=== PATIENT | female | born 1980 | race Caucasian/White ===

== ENCOUNTER 2016-04-01 20:24 | Emergency (ER) | payer OTHER ==
[~2016-04-01] VITALS: Ht 154.9 cm; Wt 50.0 kg
[~2016-04-01 20:24] MED LIST: ADVIL,NUPRIN,M200 MG PO; BACTRIM,SEPT1 TABLET PO; BUSPAR15 MG PO; DESYREL100 MG PO; ENDOCET 5-3251 EACH PO; FERROCITE324 MG PO; GABAPENTIN300 MG PO; LEVAQUIN750 MG PO; LOVENOX40 MG/0.4 SC; MOTRIN800 MG PO; NAPROSYN500 MG PO; NEURONTIN300 MG PO; NORCO 5/3251 TABLET PO; PERCOCET 5/31 TABLET PO; PRENATAL TABLE1 EAC3 PO; PROTONIX40 MG PO; TYLENOL WITH C1 EACH PO; XARELTO1 EACH PO; ZOLOFT25 MG PO
[2016-04-01 23:17] VITALS: BP 113/70
== END 2016-04-01 23:24 | disposition home or self-care (01) ==
LOC: EME 20:24
PROVIDERS: Physician Assistant
DX: M79.671 Pain in right foot (principal); M79.89 Other specified soft tissue disorders; Z86.718 Personal history of other venous thrombosis and embolism; Z79.01 Long term (current) use of anticoagulants
CPT/HCPCS: 73610; 85379; 99281; 99284

== ENCOUNTER 2016-04-11 16:42 | Emergency (ER) | payer OTHER ==
[~2016-04-11] VITALS: Ht 154.9 cm; Wt 47.3 kg
[2016-04-11] MEDS ORDERED: LIBRIUM25 MG PO (19:10)
[2016-04-11 20:29] LABS: BASOPHIL COUNT 0.1 K/uL (0-0.1); EOSINOPHIL (%) 2.7 % (0-5); EOSINOPHIL COUNT 0.1 K/uL (0-0.3); HEMATOCRIT 39.4 % (36.0-46.0); IMMATURE GRANULOCYTE (%) 0.2 % (0.0-0.7); IMMATURE GRANULOCYTE COUNT 0.1 K/uL; LYMPHOCYTE COUNT 2.2 K/uL (1.0-2.8); MCH 33.9 PG (29.0-34.0); MCHC 33.2 G/DL (30.0-36.0); MCV 101.8 FL (83-99); MEAN PLAT.VOLUME 9.4 uM^3 (9.5-12.4); MONOCYTE COUNT 0.4 K/uL (0-0.8); NEUTROPHIL (%) 46.3 % (45-76); NEUTROPHIL COUNT 2.4 K/uL (1.8-6.4); PLATELET COUNT 258 K/uL (156-360); RBC DIS.WIDTH-CV 13.3 % (11.8-14.6); RBC DIS.WIDTH-SD 48.7 % (39-53); RED BLOOD COUNT 3.87 M/uL (3.80-5.20); WHITE BLOOD COUNT 5.3 K/uL (4.1-10.2)
[2016-04-11 20:34] LABS: CHLORIDE 108 mEq/L (99-109); SODIUM 146 mEq/L (136-147)
[2016-04-11 20:36] LABS: GLUCOSE 98 mg/dL (70-99)
[2016-04-11 20:37] LABS: ANION GAP 11 MEQ/L (2-14)
[2016-04-11 20:38] LABS: TOTAL BILIRUBIN 0.2 mg/dL (0.0-1.0)
[2016-04-11 20:39] LABS: SERUM ETHYL ALCOHOL 318 mg/dL
[2016-04-11 20:40] LABS: ALKALINE PHOSPHATASE 60 IU/L (3-129); GFR ESTIMATE (CALCULATED) > 59 mL/min/
[2016-04-11 20:41] LABS: UREA NITROGEN (BUN) 3 mg/dL (9-23)
[2016-04-12] MEDS ORDERED: LIBRIUM25 MG PO (06:36)
[2016-04-12 07:10] VITALS: BP 120/76
== END 2016-04-12 07:24 | disposition home or self-care (01) ==
LOC: EME 16:42
PROVIDERS: Emergency Medicine
DX: S06.0X0A Concussion without loss of consciousness, initial encounter (principal); F10.129 Alcohol abuse with intoxication, unspecified; Y90.8 Blood alcohol level of 240 mg/100 ml or more; S00.83XA Contusion of other part of head, initial encounter; Z91.81 History of falling; J45.909 Unspecified asthma, uncomplicated; K21.9 Gastro-esophageal reflux disease without esophagitis; Z87.442 Personal history of urinary calculi; Z86.718 Personal history of other venous thrombosis and embolism; F17.200 Nicotine dependence, unspecified, uncomplicated
CPT/HCPCS: 70450; 80053; 85025; 90839; 99281; 99284; G0480

== ENCOUNTER 2016-04-19 19:07 | Emergency (ER) | payer OTHER ==
[~2016-04-19] VITALS: Ht 154.9 cm; Wt 47.7 kg
[~2016-04-19 19:07] MED LIST changes: +LIBRIUM25 MG PO
[2016-04-19] MEDS ORDERED: XARELTO20 MG PO (19:18)
[2016-04-19 23:31] VITALS: BP 112/68
[2016-04-19] MEDS ORDERED: FIORICET 50-301 EACH PO ×2 (23:37→23:44)
[2016-04-19] MEDS ORDERED: MOTRIN800 MG PO (23:37)
== END 2016-04-19 23:47 | disposition home or self-care (01) ==
LOC: EME 19:07
PROC: 3E0234Z Introduction of Serum, Toxoid and Vaccine into Muscle, Percutaneous Approach (ICD-10-PCS; principal; 2016-04-19)
DX: S80.01XA Contusion of right knee, initial encounter (principal); S80.02XA Contusion of left knee, initial encounter; S96.911A Strain of unspecified muscle and tendon at ankle and foot level, right foot, initial encounter; R51 Headache; W18.09XA Striking against other object with subsequent fall, initial encounter; F10.129 Alcohol abuse with intoxication, unspecified; F17.200 Nicotine dependence, unspecified, uncomplicated
CPT/HCPCS: 70450; 73564; 73630; 99281; 99284

== ENCOUNTER 2016-11-30 21:26 | Inpatient (IN) | payer OTHER ==
[~2016-11-30] VITALS: Ht 154.9 cm; Wt 45.7 kg
[~2016-11-30 21:26] MED LIST changes: +FIORICET 50-301 EACH PO; +XARELTO20 MG PO
[2016-11-30 22:46] LABS: HEMATOCRIT 36.2 % (36.0-46.0); MCH 31.3 PG (29.0-34.0); MCHC 33.4 G/DL (30.0-36.0); MCV 93.8 FL (83-99); MEAN PLAT.VOLUME 8.9 uM^3 (9.5-12.4); PLATELET COUNT 210 K/uL (156-360); RBC DIS.WIDTH-CV 20.9 % (11.8-14.6); RBC DIS.WIDTH-SD 71.2 % (39-53); RED BLOOD COUNT 3.86 M/uL (3.80-5.20); WHITE BLOOD COUNT 6.7 K/uL (4.1-10.2)
[2016-11-30 22:51] LABS: PROTHROMBIN TIME 10.8 SEC (10.2-12.9)
[2016-11-30 22:54] LABS: PTT 29.6 SEC (25-37)
[2016-11-30 23:04] LABS: CHLORIDE 105 mEq/L (99-109); POTASSIUM 4.3 mEq/L (3.7-5.4); SODIUM 142 mEq/L (136-147)
[2016-11-30 23:05] LABS: GLUCOSE 82 mg/dL (70-99)
[2016-11-30 23:07] LABS: ANION GAP 12 MEQ/L (2-14)
[2016-11-30 23:08] LABS: TROP-I INTERPRETATION NEGATIVE; TROPONIN-I < 0.01 ng/mL (0.0-0.30)
[2016-11-30 23:09] LABS: GFR ESTIMATE (CALCULATED) > 59 mL/min/
[2016-11-30 23:10] LABS: UREA NITROGEN (BUN) 10 mg/dL (9-23)
[2016-11-30 23:20] LABS: QUANTITATIVE HCG < 4.0 MIU/ML
[2016-12-01 04:23] LABS: MAGNESIUM 1.7 mg/dL (1.3-2.7)
[2016-12-01 04:27] LABS: TOTAL BILIRUBIN 0.3 mg/dL (0.0-1.0)
[2016-12-01 04:28] LABS: ALKALINE PHOSPHATASE 56 IU/L (3-129)
[2016-12-01 04:30] LABS: DIRECT BILIRUBIN 0.2 mg/dL (0.0-0.3)
[2016-12-01 05:57] VITALS: BP 135/84
[2016-12-01 08:29] VITALS: BP 129/58
[2016-12-01 11:44] VITALS: BP 135/84
[2016-12-01 17:18] VITALS: BP 170/91
[2016-12-01 19:48] VITALS: BP 141/85
[2016-12-01 23:45] VITALS: BP 139/82
[2016-12-02 04:00] VITALS: BP 141/91
[2016-12-02 06:57] LABS: HEMATOCRIT 34.9 % (36.0-46.0); MCH 30.8 PG (29.0-34.0); MCHC 32.7 G/DL (30.0-36.0); MCV 94.3 FL (83-99); MEAN PLAT.VOLUME 9.4 uM^3 (9.5-12.4); PLATELET COUNT 165 K/uL (156-360); RBC DIS.WIDTH-CV 19.8 % (11.8-14.6); RBC DIS.WIDTH-SD 68.2 % (39-53); WHITE BLOOD COUNT 4.5 K/uL (4.1-10.2)
[2016-12-02 08:16] VITALS: BP 133/88
[2016-12-02 12:10] VITALS: BP 136/86
[2016-12-02 17:25] VITALS: BP 134/82
[2016-12-02 19:58] VITALS: BP 138/83
[2016-12-02 23:54] VITALS: BP 124/79
[2016-12-03 03:42] VITALS: BP 117/63
[2016-12-03 07:52] VITALS: BP 120/73
[2016-12-03] MEDS ORDERED: XARELTO1 EACH PO (10:28)
[2016-12-03 11:36] VITALS: BP 136/74
== END 2016-12-03 12:45 | disposition home or self-care (01) | DRG 176 ==
LOC: EME 21:26 → EDOF 12-01 02:40 → ENRESERV 12-01 02:41 → 3EAST 12-01 05:39
PROVIDERS: Hospitalist
DX: I26.99 Other pulmonary embolism without acute cor pulmonale (principal); I80.232 Phlebitis and thrombophlebitis of left tibial vein; I82.512 Chronic embolism and thrombosis of left femoral vein; I82.812 Embolism and thrombosis of superficial veins of left lower extremity; F32.9 Major depressive disorder, single episode, unspecified; F10.20 Alcohol dependence, uncomplicated; F17.200 Nicotine dependence, unspecified, uncomplicated; Z59.0 Homelessness; Z91.19 Patient's noncompliance with other medical treatment and regimen; Z87.442 Personal history of urinary calculi; Z86.718 Personal history of other venous thrombosis and embolism; Z86.711 Personal history of pulmonary embolism; Z82.5 Family history of asthma and other chronic lower respiratory diseases
CPT/HCPCS: 71020; 71275; 80048; 80076; 83735; 84484; 84702; 85027; 85379; 85610; 85730; 93005; 93971; 99281; 99284; J1170; J2270; J7040

== ENCOUNTER 2016-12-06 20:11 | Emergency (ER) | payer OTHER ==
[~2016-12-06] VITALS: Ht 154.9 cm; Wt 45.1 kg
[2016-12-06 21:09] LABS: HEMATOCRIT 41.7 % (36.0-46.0); MCH 31.1 PG (29.0-34.0); MCHC 32.6 G/DL (30.0-36.0); MCV 95.4 FL (83-99); MEAN PLAT.VOLUME 9.4 uM^3 (9.5-12.4); PLATELET COUNT 248 K/uL (156-360); RBC DIS.WIDTH-CV 19.8 % (11.8-14.6); RBC DIS.WIDTH-SD 69.5 % (39-53); RED BLOOD COUNT 4.37 M/uL (3.80-5.20); WHITE BLOOD COUNT 4.9 K/uL (4.1-10.2)
[2016-12-06 21:14] LABS: INTER. NORMALIZED RATIO 1.2; PROTHROMBIN TIME 13.2 SEC (10.2-12.9)
[2016-12-06 21:16] LABS: CHLORIDE 108 mEq/L (99-109); POTASSIUM 3.5 mEq/L (3.7-5.4); PTT 36.8 SEC (25-37); SODIUM 146 mEq/L (136-147)
[2016-12-06 21:18] LABS: GLUCOSE 81 mg/dL (70-99)
[2016-12-06 21:19] LABS: ANION GAP 15 MEQ/L (2-14)
[2016-12-06 21:22] LABS: GFR ESTIMATE (CALCULATED) > 59 mL/min/
[2016-12-06 21:23] LABS: UREA NITROGEN (BUN) 10 mg/dL (9-23)
[2016-12-06 21:28] LABS: TROP-I INTERPRETATION NEGATIVE; TROPONIN-I < 0.01 ng/mL (0.0-0.30)
[2016-12-07 00:27] VITALS: BP 144/99
== END 2016-12-07 00:24 | disposition home or self-care (01) ==
LOC: EME → EDBD 20:11 → EME 12-07 00:24
PROVIDERS: Emergency Medicine
DX: R07.9 Chest pain, unspecified (principal); R06.02 Shortness of breath; R42 Dizziness and giddiness; R53.1 Weakness; Z86.711 Personal history of pulmonary embolism; Z86.718 Personal history of other venous thrombosis and embolism; Z79.01 Long term (current) use of anticoagulants; F17.200 Nicotine dependence, unspecified, uncomplicated
CPT/HCPCS: 71020; 71275; 80048; 84484; 85027; 85610; 85730; 93005; 99281; 99285; J1885; J7030

== ENCOUNTER 2016-12-07 20:05 | Emergency (ER) | payer OTHER ==
[~2016-12-07] VITALS: Ht 152.4 cm; Wt 39.6 kg
[2016-12-07 21:07] LABS: HEMATOCRIT 35.1 % (36.0-46.0); MCH 31.6 PG (29.0-34.0); MCV 95.6 FL (83-99); MEAN PLAT.VOLUME 9.5 uM^3 (9.5-12.4); PLATELET COUNT 199 K/uL (156-360); RBC DIS.WIDTH-CV 19.6 % (11.8-14.6); RBC DIS.WIDTH-SD 68.5 % (39-53); RED BLOOD COUNT 3.67 M/uL (3.80-5.20); WHITE BLOOD COUNT 4.4 K/uL (4.1-10.2)
[2016-12-07 21:11] LABS: CHLORIDE 110 mEq/L (99-109); POTASSIUM 3.7 mEq/L (3.7-5.4); SODIUM 145 mEq/L (136-147)
[2016-12-07 21:12] LABS: GLUCOSE 88 mg/dL (70-99)
[2016-12-07 21:14] LABS: ANION GAP 11 MEQ/L (2-14)
[2016-12-07 21:16] LABS: GFR ESTIMATE (CALCULATED) > 59 mL/min/
[2016-12-07 21:17] LABS: UREA NITROGEN (BUN) 12 mg/dL (9-23)
[2016-12-07 21:37] LABS: INTER. NORMALIZED RATIO 1.2; PROTHROMBIN TIME 13.8 SEC (10.2-12.9)
[2016-12-07 21:39] LABS: PTT 33.9 SEC (25-37)
[2016-12-08 00:50] VITALS: BP 130/84
== END 2016-12-08 00:58 | disposition home or self-care (01) ==
LOC: EME 20:05
PROVIDERS: Emergency Medicine
DX: S00.01XA Abrasion of scalp, initial encounter (principal); W01.198A Fall on same level from slipping, tripping and stumbling with subsequent striking against other object, initial encounter; Y93.E1 Activity, personal bathing and showering; Z86.718 Personal history of other venous thrombosis and embolism; Z79.01 Long term (current) use of anticoagulants; Z87.442 Personal history of urinary calculi; F17.200 Nicotine dependence, unspecified, uncomplicated
CPT/HCPCS: 70450; 80048; 85027; 85610; 85730; 99281; 99285

== ENCOUNTER 2016-12-13 20:29 | Emergency (ER) | payer OTHER ==
[~2016-12-13] VITALS: Ht 154.9 cm; Wt 44.5 kg
[2016-12-13 21:56] LABS: CHLORIDE 106 mEq/L (99-109); POTASSIUM 3.4 mEq/L (3.7-5.4); SODIUM 142 mEq/L (136-147)
[2016-12-13 21:57] LABS: GLUCOSE 85 mg/dL (70-99)
[2016-12-13 21:59] LABS: ANION GAP 13 MEQ/L (2-14)
[2016-12-13 22:01] LABS: GFR ESTIMATE (CALCULATED) > 59 mL/min/
[2016-12-13 22:02] LABS: UREA NITROGEN (BUN) 7 mg/dL (9-23)
[2016-12-13 22:06] LABS: TROP-I INTERPRETATION NEGATIVE; TROPONIN-I < 0.01 ng/mL (0.0-0.30)
[2016-12-13 22:07] LABS: HEMATOCRIT 36.5 % (36.0-46.0); MCH 31.5 PG (29.0-34.0); MCHC 33.2 G/DL (30.0-36.0); MCV 95.1 FL (83-99); MEAN PLAT.VOLUME 9.2 uM^3 (9.5-12.4); PLATELET COUNT 309 K/uL (156-360); RBC DIS.WIDTH-CV 19.9 % (11.8-14.6); RBC DIS.WIDTH-SD 69.1 % (39-53); RED BLOOD COUNT 3.84 M/uL (3.80-5.20); WHITE BLOOD COUNT 7.3 K/uL (4.1-10.2)
[2016-12-13] MEDS ORDERED: ULTRACET1 TABLET PO (22:35)
[2016-12-13] MEDS ORDERED: PERCOCET 5/31 TABLET PO (22:43)
[2016-12-13 22:55] VITALS: BP 135/88
== END 2016-12-13 22:55 | disposition home or self-care (01) ==
LOC: EME 20:29 → EXP 20:29
DX: S80.01XA Contusion of right knee, initial encounter (principal); W18.30XA Fall on same level, unspecified, initial encounter; R07.9 Chest pain, unspecified; Z86.711 Personal history of pulmonary embolism; Z86.718 Personal history of other venous thrombosis and embolism; Z79.01 Long term (current) use of anticoagulants; F17.200 Nicotine dependence, unspecified, uncomplicated
CPT/HCPCS: 71020; 73564; 80048; 84484; 85027; 93005; 99281; 99284

== ENCOUNTER 2017-07-05 14:25 | Emergency (ER) | payer OTHER ==
[~2017-07-05] VITALS: Ht 154.9 cm; Wt 50.0 kg
[~2017-07-05 14:25] MED LIST changes: +ULTRACET1 TABLET PO
[2017-07-05 16:23] LABS: HEMATOCRIT 38.3 % (36.0-46.0); MCH 33.5 PG (29.0-34.0); MCHC 33.9 G/DL (30.0-36.0); MCV 98.7 FL (83-99); PLATELET COUNT 244 K/uL (156-360); RBC DIS.WIDTH-CV 14.9 % (11.8-14.6); RBC DIS.WIDTH-SD 54.5 % (39-53); RED BLOOD COUNT 3.88 M/uL (3.80-5.20); WHITE BLOOD COUNT 5.5 K/uL (4.1-10.2)
[2017-07-05 16:34] LABS: CHLORIDE 99 mEq/L (99-109); POTASSIUM 4.3 mEq/L (3.7-5.4); SODIUM 140 mEq/L (136-147)
[2017-07-05 16:35] LABS: GLUCOSE 91 mg/dL (70-99)
[2017-07-05 16:39] LABS: CREATININE 0.7 mg/dL (0.6-1.3); GFR ESTIMATE (CALCULATED) > 59 mL/min/
[2017-07-05 16:40] LABS: UREA NITROGEN (BUN) 9 mg/dL (9-23)
[2017-07-05 16:44] LABS: TROP-I INTERPRETATION NEGATIVE; TROPONIN-I < 0.01 ng/mL (0.0-0.30)
[2017-07-05 19:10] LABS: SERUM ETHYL ALCOHOL 170 mg/dL
[2017-07-05] MEDS ORDERED: ANTIVERT25 MG PO (19:17)
[2017-07-05] MEDS ORDERED: ZOFRAN4 MG PO (19:19)
[2017-07-05 20:50] VITALS: BP 111/79
== END 2017-07-05 20:51 | disposition left against medical advice (07) ==
LOC: EME 14:25
PROVIDERS: Emergency Medicine
DX: H81.399 Other peripheral vertigo, unspecified ear (principal); Z86.718 Personal history of other venous thrombosis and embolism; Z86.711 Personal history of pulmonary embolism; T45.516A Underdosing of anticoagulants, initial encounter; Z91.128 Patient's intentional underdosing of medication regimen for other reason; Z91.19 Patient's noncompliance with other medical treatment and regimen; F10.129 Alcohol abuse with intoxication, unspecified; Y90.6 Blood alcohol level of 120-199 mg/100 ml; F17.200 Nicotine dependence, unspecified, uncomplicated; Z87.442 Personal history of urinary calculi; F32.9 Major depressive disorder, single episode, unspecified; Z80.9 Family history of malignant neoplasm, unspecified; Z82.5 Family history of asthma and other chronic lower respiratory diseases
CPT/HCPCS: 70450; 80048; 84484; 85027; 85610; 93005; 99281; 99285; G0480